=== PATIENT | male | born 1985 | race Caucasian/White ===

== ENCOUNTER 2016-08-10 07:59 | Emergency (ER) | payer MEDICAID ==
[~2016-08-10] VITALS: Ht 193 cm; Wt 83.9 kg
[2016-08-10 07:59] VITALS: BP 135/86; PULSE 93; RESP 22; TEMP 97.2; O2SAT 83
--- NOTE | 2016-08-10 07:59 | NUR ---
BROUGHT BACK TO BED #5 AND TRIAGED. WILL ASSUME CARE
--- NOTE | 2016-08-10 08:07 | NUR ---
DR FINCH AT BEDSIDE FOR EVALUATION
[2016-08-10] MEDS ORDERED: ALBUTEROL SULFATE 0.083% 2.5 MG/3 ML VIAL.NEB INH ONE (08:15)
[2016-08-10] MEDS ORDERED: DEXAMETHASONE SOD PHOSPHATE 10 MG/ML VIAL IM ONE (08:15)
[2016-08-10] MEDS ORDERED: IPRATROPIUM/ALBUTEROL SULFATE 3 ML AMPUL.NEB INH ONE (08:15)
--- NOTE | 2016-08-10 09:10 | NUR ---
PT STATES THAT HE FEELS MUCH BETTER SINCE BREATHING TREATMENT, DR FINCH IN TO SEE PT FOR RE-EVALUATION
[2016-08-10 09:21] VITALS: BP 129/71; PULSE 83; RESP 19; O2SAT 96
--- NOTE | 2016-08-10 09:21 | NUR ---
Patient given written and verbal discharge instructions and verbalizes understanding. ER MD discussed with patient the results and treatment provided. Given copies of tests performed in ER. Patient in stable condition. ID arm band removed. Rx of PRENISONE, PROAIR, AZITHROMYCIN given. Patient educated on pain management and to follow up with PMD. Pain Scale 0/10. Opportunity for questions provided and answered.
== END 2016-08-10 09:21 | disposition home or self-care (01) ==
LOC: SED 07:59
DX: J20.9 Acute bronchitis, unspecified (principal); F17.200 Nicotine dependence, unspecified, uncomplicated; R03.0 Elevated blood-pressure reading, without diagnosis of hypertension; Z71.6 Tobacco abuse counseling
CPT/HCPCS: 71010; 94640; 96372; 99284; J1100

== ENCOUNTER 2019-02-17 12:30 | Emergency (ER) | payer MEDICAID ==
[~2019-02-17] VITALS: Ht 193 cm; Wt 83.9 kg
[2019-02-17 12:49] VITALS: BP_SYST 131
[2019-02-17] MEDS ORDERED: IPRATROPIUM/ALBUTEROL SULFATE 3 ML AMPUL.NEB (DUONEB) ONE (13:34)
[2019-02-17] MEDS ORDERED: IPRATROPIUM/ALBUTEROL SULFATE 3 ML AMPUL.NEB (DUONEB) INH ONE (13:45)
[2019-02-17 13:48] VITALS: BP_SYST 131
== END 2019-02-17 13:48 | disposition home or self-care (01) ==
LOC: SED 12:30
DX: J45.909 Unspecified asthma, uncomplicated (principal); R03.0 Elevated blood-pressure reading, without diagnosis of hypertension; F17.200 Nicotine dependence, unspecified, uncomplicated
CPT/HCPCS: 71045; 94640; 99283; J7620

== ENCOUNTER 2019-04-05 11:16 | Emergency (ER) | payer MEDICAID ==
[~2019-04-05] VITALS: Ht 193 cm; Wt 81.6 kg
[2019-04-05 11:20] VITALS: BP_SYST 138
[2019-04-05 13:49] LABS: BASOPHILS # (AUTO) 0.1 K/uL (0.0-0.2); BASOPHILS % (AUTO) 1.6 % (0.0-2.0); EOSINOPHILS # (AUTO) 0.1 K/uL (0.0-0.4); HEMATOCRIT 45.9 % (36-54); LYMPHOCYTES # (AUTO) 2.1 K/uL (1.0-5.5); MEAN CORPUSCULAR HEMOGLOBIN 32 pg (27-31); MEAN CORPUSCULAR HGB CONC 35 % (32-36); MEAN CORPUSCULAR VOLUME 92 fL (79.0-98.0); MONOCYTES # (AUTO) 0.7 K/uL (0.0-1.0); MONOCYTES % (AUTO) 14.4 % (1.7-9.3); NEUTROPHILS # (AUTO) 1.7 K/uL (1.8-7.7); PLATELET COUNT (AUTO) 183 K/uL (130-430); RED BLOOD CELL COUNT(AUTO) 4.97 MIL/uL (4.2-6.2); RED CELL DISTRIBUTION WIDTH 12.2 % (9.0-15.0); WHITE BLOOD COUNT (AUTO) 4.7 K/uL (4.8-10.8)
[2019-04-05 13:56] LABS: CALCIUM 8.6 mg/dL (8.4-11.0); CREATININE 1.19 mg/dL (0.55-1.30); POTASSIUM 4.4 mmol/L (3.5-5.1)
[2019-04-05 14:51] LABS: BILIRUBIN,URINE NEGATIVE (NEGATIVE); BLOOD, URINE NEGATIVE (NEGATIVE); CLARITY/URINE CLEAR (CLEAR); COLOR,URINE YELLOW (YELLOW); GLUCOSE,URINE NEGATIVE (NEGATIVE); KETONES,URINE NEGATIVE (NEGATIVE); LEUKOCYTE ESTERASE ,URINE NEGATIVE (NEGATIVE); NITRITE, URINE NEGATIVE (NEGATIVE); PROTEIN URINE NEGATIVE (NEGATIVE); UROBILINOGEN,URINE 0.2 (0.2-1.0)
[2019-04-05 15:06] LABS: BARBITURATE, URINE NEGATIVE (NEG <=200); BENZODIAZEPINE, URINE NEGATIVE (NEG <=150); COCAINE, URINE NEGATIVE (NEG <=150); METHAMPHETAMINES SCREEN,URINE NEGATIVE (NEG <=500); URINE AMPHETAMINE NEGATIVE (NEG <=500); URINE METHADONE NEGATIVE (NEG <=200)
[2019-04-05 15:07] LABS: CANNABINOID, URINE POSITIVE (NEG <=50); OPIATE, URINE NEGATIVE (NEG <=100); PHENCYCLIDINE SCREEN,URINE NEGATIVE (NEG <=25); UR TRICYCLIC ANTIDEPRESSANTS NEGATIVE (NEG <=300); URINE OXYCODONE SCREEN NEGATIVE (NEG <=100); URINE PROPOXYPHENE SCREEN NEGATIVE (NEG <=300)
[2019-04-05 15:28] VITALS: BP_SYST 129
== END 2019-04-05 15:25 | disposition home or self-care (01) ==
LOC: SED 11:16
DX: F12.10 Cannabis abuse, uncomplicated (principal); M79.10 Myalgia, unspecified site; R53.1 Weakness; R03.0 Elevated blood-pressure reading, without diagnosis of hypertension; Z87.891 Personal history of nicotine dependence
CPT/HCPCS: 36415; 71045; 80048; 80307; 81003; 85025; 93005; 99284

== ENCOUNTER 2023-03-20 09:28 | Emergency (ER) | payer MEDICAID ==
[~2023-03-20] VITALS: Ht 193 cm; Wt 88.5 kg
[2023-03-20 09:37] VITALS: BP_SYST 146; PULSE 71; RESP 18; TEMP 97.6; O2SAT 97
[2023-03-20] MEDS ORDERED: IBUPROFEN 800 MG TABLET PO ONE (10:30)
[2023-03-20] MEDS ORDERED: ACET-2634 PO (11:20)
[2023-03-20] MEDS ORDERED: DICL20GE TP (11:20)
[2023-03-20 11:50] VITALS: BP_SYST 138; PULSE 75; RESP 16; TEMP 97.4; O2SAT 96
== END 2023-03-20 11:49 | disposition home or self-care (01) ==
LOC: SED 09:28
DX: S83.92XA Sprain of unspecified site of left knee, initial encounter (principal); Z79.899 Other long term (current) drug therapy; W10.9XXA Fall (on) (from) unspecified stairs and steps, initial encounter; Y93.89 Activity, other specified; Y92.89 Other specified places as the place of occurrence of the external cause; Y99.8 Other external cause status
CPT/HCPCS: 73564; 99283

== ENCOUNTER 2024-03-18 17:42 | Emergency (ER) | payer MEDICAID ==
[~2024-03-18] VITALS: Ht 193 cm; Wt 90.7 kg
[~2024-03-18 17:42] MED LIST: ACET-2634 PO; DICL20GE TP
[2024-03-18 17:47] VITALS: BP_SYST 133; PULSE 76; RESP 18; TEMP 98.3; O2SAT 98
[2024-03-18 20:26] VITALS: BP_SYST 133; PULSE 76; RESP 18; TEMP 98.3; O2SAT 98
[2024-03-18] MEDS: DIPHTH,PERTUSS(ACELL),TET VAC 0.5 ML VIAL (Tdap) I.M. ONE (20:27)
== END 2024-03-18 20:26 | disposition home or self-care (01) ==
LOC: SED 17:42
DX: S61.211A Laceration without foreign body of left index finger without damage to nail, initial encounter (principal); R03.0 Elevated blood-pressure reading, without diagnosis of hypertension; E11.9 Type 2 diabetes mellitus without complications; Z23 Encounter for immunization; Z79.899 Other long term (current) drug therapy; W26.8XXA Contact with other sharp object(s), not elsewhere classified, initial encounter; Y93.89 Activity, other specified; Y92.89 Other specified places as the place of occurrence of the external cause; Y99.8 Other external cause status
CPT/HCPCS: 90715; 99283